=== PATIENT | male | born 1990 | race African-American/Black ===

== ENCOUNTER 2020-11-24 14:59 | Emergency (ER) | payer SELFPAY ==
[~2020-11-24] VITALS: Ht 177.8 cm; Wt 77.1 kg
[2020-11-24 15:04] VITALS: BP_SYST 125
--- NOTE | 2020-11-24 16:31 | NUR ---
Patient to ER bed H2 to gown for evaluation. Side rails up.
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
--- NOTE | 2020-11-24 16:55 | NUR ---
Dr Leach in to assess
[2020-11-24 17:28] VITALS: BP_SYST 141
--- NOTE | 2020-11-24 17:28 | NUR ---
Patient given written and verbal discharge instructions and verbalizes understanding. ER MD discussed with patient the results and treatment provided. Patient in stable condition. ID arm band removed. Patient educated on pain management and to follow up with PMD. Pain Scale []. Opportunity for questions provided and answered.
== END 2020-11-24 17:38 | disposition home or self-care (01) ==
LOC: EDSEX 14:59 → SED 14:59
DX: S20.212A Contusion of left front wall of thorax, initial encounter (principal); W51.XXXA Accidental striking against or bumped into by another person, initial encounter; Y93.89 Activity, other specified; Y92.89 Other specified places as the place of occurrence of the external cause; Y99.8 Other external cause status
CPT/HCPCS: 71046-TC; 99283